=== PATIENT | male | born 1985 | race Caucasian/White ===

== ENCOUNTER → 2018-01-22 | Outpatient (CLI) | payer OTHER | LOC: COL.RAD 08:45 | DX: M47.816 Spondylosis without myelopathy or radiculopathy, lumbar region (principal); M48.07 Spinal stenosis, lumbosacral region ==

== ENCOUNTER 2022-01-15 09:27 | Day surgery (SDC) | payer OTHER ==
[~2022-01-15] VITALS: Ht 175.3 cm; Wt 87.9 kg
[2022-01-15] MEDS ORDERED: DESYREL 50MG50 MG PO (10:03)
[2022-01-15] MEDS ORDERED: ZOLOFT 100MG100 MG PO (10:03)
[2022-01-15] MEDS ORDERED: ATORVASTATIN PO (10:04)
[2022-01-15] MEDS ORDERED: LIPITOR 10MG10 MG PO (10:06)
[2022-01-15] MEDS ORDERED: LOSARTAN PO (10:07)
[2022-01-15 10:16] VITALS: BP 123/89; PULSE 69; TEMP 98.3
[2022-01-15 10:55] VITALS: BP 102/71; PULSE 59; TEMP 98
--- NOTE | 2022-01-15 10:55 | NUR ---
PATIENT ARRIVES TO ROOM VIA CART. ASSIST TO CHAIR X 1. DENIES ANY PAIN OR NAUSEA. VITAL SIGNS ARE STABLE. PATIENT REQUESTS ORANGE JUICE AND CHOCOLATE PUDDING. AT BEDSIDE. WILL CONTINUE TO MONITOR.
[2022-01-15 11:10] VITALS: BP 110/80; PULSE 59
--- NOTE | 2022-01-15 11:10 | NUR ---
PATIENT STILL DENIES ANY PAIN OR NAUSEA. VITAL SIGNS ARE STABLE. HE TOLERATED PUDDING AND ORANGE JUICE WELL. REMAINS AT BEDSIDE, WILL CONTINUE TO MONITOR.
[2022-01-15 11:25] VITALS: BP 105/78; PULSE 67
--- NOTE | 2022-01-15 11:25 | NUR ---
PATIENT IS READY FOR DISCHARGE. HE DENIES ANY PAIN OR NAUSEA. REMAINS AT BEDSIDE. VITAL SIGNS ARE STABLE, IV REMOVED AT 1128. HE WILL BE READY FOR DISCHARGE SHORTLY.
== END 2022-01-15 11:37 | disposition home or self-care (01) ==
LOC: SDCO 09:27
DX: K29.50 Unspecified chronic gastritis without bleeding (principal); K20.90 Esophagitis, unspecified without bleeding
CPT/HCPCS: J2704; J7030